=== PATIENT | female | born 1995 | race Two or more races ===

== ENCOUNTER 2020-05-25 23:58 | Emergency (ER) | payer MEDICAID ==
--- NOTE | 2020-05-26 00:23 | EDM.PDOC ---
ED HPI GENERAL MEDICAL PROBLEM - General Chief Complaint: General Stated Complaint: HEMORRHOID Time Seen by Provider: 05/26/20 00:10 - History of Present Illness INITIAL COMMENTS - FREE TEXT/NARRATIVE: History of present illness: [] Review of systems: As per history of present illness and below otherwise all systems reviewed and negative. Past medical history: As per history of present illness and as reviewed below otherwise noncontributory. Surgical history: As per history of present illness and as reviewed below otherwise noncontributory. Social history: No reported history of drug or alcohol abuse. Family history: As per history of present illness and as reviewed below otherwise noncontributory. Physical exam: Constitutional - well developed, well-nourished and in no acute distress HEENT - normocephalic, no evidence of trauma - external nose and mouth normal - no mass in neck and no JVD - mucosae moist EYES - full EOM, PERRL, no icterus - no evidence of inflammation, injection, or drainage Respiratory - no respiratory distress, equal bilateral expansion Musculoskeletal no gross deformity of long bones or joints - no tenderness, swelling or edema Neurologic - Alert and oriented times four - CN II-XII grossly intact - motor sensory and coordination symmetrically normal Psychiatric - appropriate mood and affect with normal thought content Hematologic - No petechiae or purpura - mucosa appropriate color and sclera not pale - normal nail bed color and refill Integument - no rash or evidence of trauma - normal turgor Perianal-the patient has a small hemorrhoidal tag but has some fresh blood. There is no other abnormality. It is not thrombosed. It is not inflamed or hot. Is not very tender. Diagnostics: [] Exam Therapeutics: Conditions [] Impression: Hemorrhoid with spontaneous bleeding [] Plan: [] Definitive disposition and diagnosis as appropriate pending reevaluation and review of above. rectal Pain Score (Numeric/FACES): 2 - Related Data Allergies Allergy/AdvReac Type Severity Reaction Status Date / Time No Known Allergies Allergy Verified 05/26/20 00:10 Home Meds: Home Meds Hydrocortisone [Anusol-HC] 30 gm RC BID #1 vial 05/26/20 [Rx] Past Medical History Gastrointestinal History: Reports: Hemorrhoids [employer] History: Reports: , Other (See Below) Other [employer] History: pre-ecclamsia, induced DM Psychiatric History: Reports: PTSD - Past Surgical History GI Surgical History: Reports: None Social & Family History - Family History Family Medical History: Noncontributory - Tobacco Use Smoking Status *Q: Never Smoker Second Hand Smoke Exposure: No - Caffeine Use Caffeine Use: Reports: Soda - Recreational Drug Use Recreational Drug Use: Yes Recreational Drug Type: Reports: Marijuana/Hashish Recreational Drug Use Frequency: Socially ED ROS GENERAL - Review of Systems Review Of Systems: Comprehensive ROS is negative, except as noted in HPI. ED EXAM, GENERAL - Physical Exam Exam: See Below Free Text/Narrative:: My physical exam is on the HPI Course - Vital Signs Last Recorded V/S: Last Vital Signs Temp 97.1 F 05/26/20 00:02 Pulse 93 05/26/20 00:02 Resp 17 05/26/20 00:02 BP 127/93 H 05/26/20 00:02 Pulse Ox 95 05/26/20 00:02 Departure - Departure Time of Disposition: 00:24 Disposition: Home, Self-Care 01 Condition: Good Clinical Impression: External hemorrhoid, bleeding - Discharge Information Prescriptions: Hydrocortisone [Anusol-HC] 30 gm RC BID #1 vial Instructions: Hemorrhoids, [id number] Referrals: PCP,None [Primary Care Provider] - Forms: ED Department Discharge Additional Instructions: The following information is given to patients seen in the emergency department who are being discharged to home. This information is to outline your options for follow-up care. We provide all patients seen in our emergency department with a follow-up referral. The need for follow-up, as well as the timing and circumstances, are variable depending upon the specifics of your emergency department visit. If you don't have a primary care physician on staff, we will provide you with a referral. We always advise you to contact your personal physician following an e mergency department visit to inform them of the circumstance of the visit and for follow-up with them and/or the need for any referrals to a consulting specialist. The emergency department will also refer you to a specialist when appropriate. This referral assures that you have the opportunity for follow-up care with a specialist. All of these measure are taken in an effort to provide you with op timal care, which includes your follow-up. Under all circumstances we always encourage you to contact your private physician who remains a resource for coordinating your care. When calling for follow-up care, please make the office aware that this follow-up is from your recent emergency room visit. If for any reason you are refused follow-up, please contact the [facility] Emergency Department at and asked to speak to the emergency department charge nurse. Colonoscopy is advised at some time but not emergency. [facility] [place] - General Surgery Professional Building [address] [place] [address], [address] [place] [address] Sepsis Event Note (ED) - Evaluation Sepsis Screening Result: No Definite Risk - Focused Exam Vital Signs: Vital Signs Temp Pulse Resp BP Pulse Ox 05/26/20 00:02 97.1 F 93 17 127/93 H 95
== END 2020-05-26 00:37 | disposition home or self-care (01) ==
LOC: MW.ED 23:58
DX: K64.4 Residual hemorrhoidal skin tags (principal); Z79.899 Other long term (current) drug therapy
CPT/HCPCS: 99283